=== PATIENT | male | born 1955 | race Caucasian/White ===

== ENCOUNTER → 2020-01-16 | Outpatient (CLI) | payer OTHER, MEDICARE ==
[~2020-01-16] MED LIST: ERYTHROMYCIN E3.5 G1 OP; ERYTHROMYCIN E3.5 G1 OPHTHALMIC; PERCOCET 10-321 EACH PO; PERCOCET 5-3251 EACH PO; TOBREX5 ML OP
== END ==
LOC: M.LAB 06:55
PROVIDERS: ATTEND Orthopaedic Surgery
DX: Z01.812 Encounter for preprocedural laboratory examination (principal)

== ENCOUNTER 2020-07-20 21:43 | Emergency (ER) | payer OTHER, MEDICARE ==
[~2020-07-20] VITALS: Ht 177.8 cm; Wt 84.4 kg
[2020-07-20] MEDS ORDERED: ALLOPURINOL 10100 M3 PO (22:29)
[2020-07-20] MEDS ORDERED: GENTAK5 ML EA. EYE (23:27)
[2020-07-20 23:40] VITALS: BP 170/89
== END 2020-07-20 23:40 | disposition home or self-care (01) ==
LOC: M.ERS 21:43
DX: S05.02XA Injury of conjunctiva and corneal abrasion without foreign body, left eye, initial encounter (principal); Z88.5 Allergy status to narcotic agent; Z87.442 Personal history of urinary calculi; X58.XXXA Exposure to other specified factors, initial encounter; Y93.89 Activity, other specified; Y92.89 Other specified places as the place of occurrence of the external cause; Y99.8 Other external cause status